=== PATIENT | female | born 1990 | race Caucasian/White ===

== ENCOUNTER 2019-09-25 22:04 | Emergency (ER) | payer SELFPAY ==
[~2019-09-25] VITALS: Ht 170.2 cm; Wt 90.7 kg
[2019-09-25 22:11] VITALS: Ht 170.2 cm; Wt 90.7 kg
[2019-09-25 23:02] VITALS: BP 131/91
== END 2019-09-25 23:02 | disposition home or self-care (01) ==
LOC: ED 22:04
DX: S91.112A Laceration without foreign body of left great toe without damage to nail, initial encounter (principal); Z90.89 Acquired absence of other organs; W20.8XXA Other cause of strike by thrown, projected or falling object, initial encounter; Y93.89 Activity, other specified; Y92.89 Other specified places as the place of occurrence of the external cause; Y99.8 Other external cause status
CPT/HCPCS: 90715; J2001